=== PATIENT | male | born 1945 | race African-American/Black ===

== ENCOUNTER 2019-07-28 21:50 | Observation (INO) ==
[2019-07-28] MEDS ORDERED: ASPIRIN 325 MG TABLET PO STA (22:22)
[2019-07-28 22:30] LABS: Basophils % 0.2 % (0.0-0.8); Hematocrit 40.5 VOL% (42.0-52.0); Hemoglobin 13.9 GM/DL (14.0-18.0); Immature Granulocytes % 4.3 %; Immature Granulocytes Absolute 0.52 #; Lymphocytes # 1.2 10*3/uL (1.4-4.0); Lymphocytes % 9.6 % (21.2-54.2); Mean Corpuscular HGB Conc 34.3 GM/DL (32-36); Mean Corpuscular Volume 92.3 FL (87-102); Mean Platelet Volume 9.4 FL (9.6-12.0); NRBC # 0.04 10*3/uL; Neutrophils % 79.9 % (38.7-73.9); Platelet Count 195 T/CUMM (130-400); Red Blood Count 4.39 MC/CUMM (3.8-5.5); Red Cell Distribution Width 14.8 % (9.3-17.3)
[2019-07-28] MEDS: dilTIAZem Drip 125 MG/125 ML PREMIX IV SCH (22:35)
[2019-07-28 22:48] LABS: PT Patient Result 10.4 SECS (9.8-11.9)
[2019-07-28 22:52] LABS: Alanine Aminotransferase 30 U/L (16-61); Albumin 2.2 G/DL (3.4-5.0); Alkaline Phosphatase 72 U/L (45-117); Aspartate Amino Transferase 22 U/L (0-37); Bilirubin,Total < 0.39 MG/DL (0.2-1.0); Blood Urea Nitrogen 18 MG/DL (7-18); Calcium 7.7 MG/DL (8.5-10.1); Estimated Glom Filtration Rate 149 ML/MIN; Ferritin 186.9 ng/ml (26-388); Glucose 131 MG/DL (74-106); Osmolality,Calculated 265.7 MOS/KG (273-304); Total Protein 5.5 G/DL (6.4-8.3)
[2019-07-28 23:40] LABS: Barbiturates Screen,Urine Negative (Negative); Benzodiazepines Screen,Urine Negative (Negative); Cannabinoid Screen,Urine Negative (Negative); Opiate Screen,Urine Negative (Negative); Phencyclidine Screen,Urine Negative (Negative)
[2019-07-28 23:51] LABS: Apearance,Urine CLOUDY (Clear); Bacteria,Urine Few /HPF (Few); Bilirubin,Urine Negative (Negative); Blood, Urine Large mg/dL (Negative); Glucose,Urine (UA) Negative (Negative); Ketones,Urine Negative (Negative); Mucus,Urine Few /LPF (Occasional); Nitrite,Urine Negative (Negative); Protein,Urine 30 MG/DL; RBC,Urine 3231 /HPF (0-4); Squamous Epithelial Cell,Urine Occasional /HPF (0-10); Urine Color Red (Yellow); Urine Specific Gravity 1.026 (1.001-1.035); Urine Urobilinogen < 2.0 EU/DL (0.2-1.0); WBC,Urine 57 /HPF (0-6)
[2019-07-29 03:19] LABS: Lymphocytes 15 % (20-55); Myelocytes 1 %; Segmented Neutrophils 78 % (50-85); Total Cells Counted 100
[2019-07-29 03:20] LABS: Atypical Lymphocytes Few; Hypochromasia Slight; Platelet Estimate Normal
[2019-07-29 03:21] LABS: Reactive Lymphocytes Few
[2019-07-29] MEDS ORDERED: DEXTROSE 50% 25 GM/50 ML SYRINGE IV PRN (03:26)
[2019-07-29] MEDS ORDERED: GLUCAGON 1 MG VIAL IM PRN (03:26)
[2019-07-29] MEDS ORDERED: ONDANSETRON 4 MG/2 ML VIAL IV PRN (03:26)
[2019-07-29] MEDS ORDERED: ACETAMINOPHEN 325 MG TABLET PO PRN (03:26)
[2019-07-29] MEDS: INSULIN REGULAR 100 UNIT/ML SUBCUT SCH ×4 (08:30→22:56)
[2019-07-29 10:41] LABS: Basophils % 0.2 % (0.0-0.8); Eosinophils # 0.1 10*3/uL (0.0-0.87); Eosinophils % 0.5 % (0.00-10.9); Hematocrit 43.1 VOL% (42.0-52.0); Hemoglobin 14.4 GM/DL (14.0-18.0); Immature Granulocytes Absolute 0.54 #; Lymphocytes # 1.6 10*3/uL (1.4-4.0); Lymphocytes % 14.4 % (21.2-54.2); Mean Corpuscular HGB Conc 33.4 GM/DL (32-36); Mean Corpuscular Volume 94.9 FL (87-102); Mean Platelet Volume 9.3 FL (9.6-12.0); Monocytes % 5.4 % (1.7-12.7); Neutrophils % 74.5 % (38.7-73.9); Platelet Count 190 T/CUMM (130-400); Red Blood Count 4.54 MC/CUMM (3.8-5.5); Red Cell Distribution Width 14.8 % (9.3-17.3); White Blood Count 10.8 T/CUMM (4-12)
[2019-07-29 10:59] LABS: Albumin 2.3 G/DL (3.4-5.0); Band Neutrophils 1 % (0-10); Bilirubin,Total 0.4 MG/DL (0.2-1.0); Calcium 8.2 MG/DL (8.5-10.1); Eosinophils 2 % (0-10); Lymphocytes 16 % (20-55); Osmolality,Calculated 258.1 MOS/KG (273-304); Platelet Estimate Adequate; Segmented Neutrophils 75 % (50-85); Total Cells Counted 100; Total Protein 5.7 G/DL (6.4-8.3)
[2019-07-29] MEDS: PANTOPRAZOLE 40 MG TABLET PO SCH (12:00)
[2019-07-29] MEDS: DILTIAZEM 30 MG TABLET PO SCH ×2 (16:26→20:00)
[2019-07-29] MEDS: DEXAMETHASONE 4 MG TABLET PO SCH (20:00)
[2019-07-29] MEDS: TIMOLOL 0.5% OPH SOLN 5 ML BOTTLE BOTH EYES SCH (20:00)
[2019-07-29] MEDS: levETIRAcetam 500 MG TABLET PO SCH (20:00)
[2019-07-29] MEDS: DORZOLAMIDE/TIMOLOL OPH SOLN 10 ML BOTTLE BOTH EYES SCH (20:00)
[2019-07-29] MEDS: APIXABAN 2.5 MG TABLET PO SCH (20:00)
[2019-07-29] MEDS: dilTIAZem Drip 125 MG/125 ML PREMIX IV SCH (23:02)
[2019-07-30] MEDS: levETIRAcetam 500 MG TABLET PO SCH (08:20)
[2019-07-30] MEDS: APIXABAN 2.5 MG TABLET PO SCH (08:20)
[2019-07-30] MEDS: DEXAMETHASONE 4 MG TABLET PO SCH (08:20)
[2019-07-30] MEDS: PANTOPRAZOLE 40 MG TABLET PO SCH (08:20)
[2019-07-30] MEDS: DILTIAZEM 30 MG TABLET PO SCH ×2 (08:20→14:10)
[2019-07-30] MEDS: TIMOLOL 0.5% OPH SOLN 5 ML BOTTLE BOTH EYES SCH (08:20)
[2019-07-30] MEDS: INSULIN REGULAR 100 UNIT/ML SUBCUT SCH ×3 (08:20→17:24)
[2019-07-30] MEDS: DORZOLAMIDE/TIMOLOL OPH SOLN 10 ML BOTTLE BOTH EYES SCH (08:20)
[2019-07-30] MEDS ORDERED: LEVOTHYROXINE 100 MCG TABLET PO SCH (09:00)
[2019-07-30] MEDS ORDERED: TAMSULOSIN 0.4 MG CAPSULE PO SCH (09:00)
[2019-07-30] MEDS ORDERED: APIXABAN 2.5 MG TABLET PO SCH (09:00)
[2019-07-30] MEDS ORDERED: FUROSEMIDE 20 MG TABLET PO SCH (09:00)
[2019-07-30] MEDS ORDERED: POTASSIUM CHLORIDE 20 MEQ TABLET PO ONE (11:00)
[2019-07-30 11:58] LABS: Basophils % 0.3 % (0.0-0.8); Hematocrit 42.8 VOL% (42.0-52.0); Hemoglobin 14.4 GM/DL (14.0-18.0); Immature Granulocytes % 4.1 %; Immature Granulocytes Absolute 0.47 #; Lymphocytes # 0.9 10*3/uL (1.4-4.0); Lymphocytes % 7.8 % (21.2-54.2); Mean Corpuscular HGB Conc 33.6 GM/DL (32-36); Mean Corpuscular Volume 95.1 FL (87-102); Mean Platelet Volume 9.5 FL (9.6-12.0); Monocytes % 2.2 % (1.7-12.7); Neutrophils % 85.6 % (38.7-73.9); Platelet Count 179 T/CUMM (130-400); Red Cell Distribution Width 14.7 % (9.3-17.3); White Blood Count 11.5 T/CUMM (4-12)
[2019-07-30 12:09] LABS: Osmolality,Calculated 257.9 MOS/KG (273-304)
[2019-07-30 17:27] VITALS: BP 127/65
== END 2019-07-30 17:48 | disposition home or self-care (01) ==
LOC: EDUNIT# → EDBD → N.EDINP 21:50 → N.ED 21:50 → SUATTDRO 07-29 03:26 → N.2E 07-29 05:30
PROVIDERS: ADMIT Internal Medicine; ATTEND Internal Medicine